=== PATIENT | male | born 1985 | race American Indian/Alaskan Native ===

== ENCOUNTER 2016-12-13 18:29 | Emergency (ER) | payer OTHER ==
[2016-12-13 18:29] VITALS: BMI 30.1
[2016-12-13 19:10] VITALS: BP 140/80; PULSE 106; RESP 18; TEMP 98; O2SAT 100
--- NOTE | 2016-12-13 19:54 | ED PDOC ---
Upper Extremity Pain/Injury Time Seen by Provider: 12/13/16 19:09 Chief Complaint (Nursing): Upper Extremity Problem/Injury Chief Complaint (Provider): Upper Extremity Problem/Injury History Per: Patient History/Exam Limitations: no limitations Onset/Duration Of Symptoms: Days (x1) Additional Complaint(s): Loco Marie, 30 year old male presents to the ED on 12/13/16 with pain localized to the right side of his neck. The patient initially felt the pain when he bent forward to pickle processor his son 1 day prior to arrival. The patient has a history of herniated discs in his neck. He takes Tramadol and Flexeril, but hasn't taken the medication in 2 months. The patient denies any fever, numbness , tingling, or blood trauma. Of note, the patient is under the care of a pain management doctor. The patient states that he hasn't visited his pain management doctor because the doctor is away on vacation. Past Medical History Reviewed: Historical Data, Nursing Documentation, Vital Signs Vital Signs: Last Vital Signs Temp 98 F 12/13/16 19:06 Pulse 106 H 12/13/16 19:06 Resp 18 12/13/16 19:06 BP 140/80 12/13/16 19:06 Pulse Ox 100 12/13/16 19:06 - Medical History Other PMH: history of herniated discs in neck - Surgical History Surgical History: Appendectomy - Family History Family History: States: Unknown Family Hx - Home Medications Home Medications: Ambulatory Orders Medication Instructions Recorded Oxycodone HCl/Acetaminophen 1 mg PO Q4 PRN 11/02/15 [Percocet 5-325 mg Tablet] Cyclobenzaprine [Cyclobenzaprine 10 mg PO Q8 PRN #30 tab 04/29/16 HCl] Tramadol HCl [Ultram] 50 mg PO BID PRN #30 tablet 04/29/16 oxyCODONE/Acetaminophen [Percocet 1 ea PO Q6H PRN #15 tab 06/01/16 5/325 mg Tab] Cyclobenzaprine [Cyclobenzaprine 10 mg PO Q8 PRN #30 tab 12/13/16 HCl] Tramadol HCl [Ultram] 50 mg PO BID PRN #15 tablet 12/13/16 - Allergies Allergies/Adverse Reactions: Allergies Allergy/AdvReac Type Severity Reaction Status Date / Time acetaminophen [From Tylenol] Allergy Severe SHORTNESS Verified 06/01/16 17:50 OF BREATH ibuprofen Allergy Severe SHORTNESS Verified 06/01/16 17:50 OF BREATH Penicillins Allergy Severe SHORTNESS Verified 06/01/16 17:50 OF BREATH Review of Systems Constitutional: Negative for: Fever, Other (no blood trauma) Musculoskeletal: Positive for: Neck Pain (localized to right side of neck) Neurological: Negative for: Numbness (no tingling) Physical Exam - Reviewed Nursing Documentation Reviewed: Yes Vital Signs Reviewed: Yes - Physical Exam Appears: Positive for: Non-toxic, No Acute Distress Head Exam: Positive for: ATRAUMATIC, NORMOCEPHALIC Skin: Positive for: Normal Color, Warm, Dry Eye Exam: Positive for: Normal appearance ENT: Positive for: Normal ENT Inspection Neck: Positive for: Pain On Movement Of Neck (Moderate right sided paracervical muscle tenderness and spasms) Cardiovascular/Chest: Positive for: Regular Rate, Rhythm, Chest Non Tender Respiratory: Positive for: Normal Breath Sounds. Negative for: Respiratory Distress Gastrointestinal/Abdominal: Positive for: Normal Exam, Soft. Negative for: Tenderness Extremity: Positive for: Normal ROM, Other (Equal supervisor of instruction strength bilaterally ) Neurologic/Psych: Positive for: Alert, Oriented (x3) - ECG O2 Sat by Pulse Oximetry: 100 (RA) Pulse Ox Interpretation: Normal Medical Decision Making Medical Decision Makin:09 Initial Impression: Right sided neck pain Initial Plan: * Flexeril 10 mg PO Once * Ultram 50 mg PO STAT * Reevaluation Scribe Attestation: Documented by Tanya Tate, acting as a scribe for Marcelino Colon PA-C. Provider Scribe Attestation: All medical record entries made by the Scribe were at my direction and personally dictated by me. I have reviewed the chart and agree that the record accurately reflects my personal performance of the history, physical exam, medical decision making, and the department course for this patient. I have also personally directed, reviewed, and agree with the discharge instructions and disposition. Disposition - Clinical Impression Clinical Impression: Neck pain - Patient ED Disposition Is Patient to be Admitted: No - Disposition Disposition Time: 20:00 Condition: STABLE Additional Instructions: Follow up with your back specialist in 2 days for further evaluation. Prescriptions: Cyclobenzaprine [Cyclobenzaprine HCl] 10 mg PO Q8 PRN #30 tab PRN Reason: Muscle Spasm Tramadol HCl [Ultram] 50 mg PO BID PRN #15 tablet PRN Reason: Other Instructions: Cervical Sprain (ED) Print Language: [id number]
== END 2016-12-13 20:00 | disposition home or self-care (01) ==
LOC: H.ER 18:29
DX: M54.2 Cervicalgia (principal); Z88.0 Allergy status to penicillin

== ENCOUNTER 2017-02-04 12:53 | Observation (INO) | payer OTHER ==
[2017-02-04 12:53] VITALS: BMI 30.1
[2017-02-04] MEDS ORDERED: Sodium Chloride 0.9% 1,000 ML IV STA ×2 (13:56→14:13)
--- NOTE | 2017-02-04 14:12 | ED PDOC ---
HPI: General Adult Time Seen by Provider: 02/04/17 13:12 Chief Complaint (Nursing): Abdominal Pain History Per: Patient Additional Complaint(s): Pt. states since last night he's had b/l lower abdominal pain associated with 7 episodes of non-bloody watery diarrhea and nausea without vomiting. Also reports having a temperature of 103 just prior to arrival but did not take any antipyretics. Denies recent travel, sick contacts, melena, hematochezia, BRBPR, hematemesis. Past Medical History Reviewed: Historical Data, Nursing Documentation, Vital Signs Vital Signs: Last Vital Signs Temp 98.9 F 02/04/17 13:06 Pulse 86 02/04/17 13:06 Resp 18 02/04/17 13:06 BP 140/82 02/04/17 13:06 Pulse Ox 100 02/04/17 16:53 - Surgical History Surgical History: Appendectomy - Family History Family History: States: No Known Family Hx - Home Medications Home Medications: Ambulatory Orders Medication Instructions Recorded Oxycodone HCl/Acetaminophen 1 mg PO Q4 PRN 11/02/15 [Percocet 5-325 mg Tablet] Cyclobenzaprine [Cyclobenzaprine 10 mg PO Q8 PRN #30 tab 04/29/16 HCl] Tramadol HCl [Ultram] 50 mg PO BID PRN #30 tablet 04/29/16 oxyCODONE/Acetaminophen [Percocet 1 ea PO Q6H PRN #15 tab 06/01/16 5/325 mg Tab] Cyclobenzaprine [Cyclobenzaprine 10 mg PO Q8 PRN #30 tab 12/13/16 HCl] Tramadol HCl [Ultram] 50 mg PO BID PRN #15 tablet 12/13/16 - Allergies Allergies/Adverse Reactions: Allergies Allergy/AdvReac Type Severity Reaction Status Date / Time acetaminophen [From Tylenol] Allergy Severe SHORTNESS Verified 06/01/16 17:50 OF BREATH ibuprofen Allergy Severe SHORTNESS Verified 06/01/16 17:50 OF BREATH Penicillins Allergy Severe SHORTNESS Verified 06/01/16 17:50 OF BREATH Review of Systems ROS Statement: Except As Marked, All Systems Reviewed And Found Negative Gastrointestinal: Positive for: Nausea, Abdominal Pain, Diarrhea Physical Exam - Reviewed Nursing Documentation Reviewed: Yes Vital Signs Reviewed: Yes - Physical Exam Appears: Positive for: Well, Non-toxic, No Acute Distress Head Exam: Positive for: ATRAUMATIC, NORMAL INSPECTION, NORMOCEPHALIC Skin: Positive for: Normal Color, Warm. Negative for: Rash Eye Exam: Positive for: EOMI, Normal appearance, PERRL ENT: Positive for: Normal ENT Inspection Neck: Positive for: Normal, Painless ROM Cardiovascular/Chest: Positive for: Regular Rate, Rhythm Respiratory: Positive for: CNT, Normal Breath Sounds Gastrointestinal/Abdominal: Positive for: Normal Exam, Bowel Sounds, Soft. Negative for: Tenderness (to deep palpation) Back: Positive for: Normal Inspection Extremity: Positive for: Normal ROM Neurologic/Psych: Positive for: Alert, Oriented - Laboratory Results Result Diagrams: 02/04/17 14:00 02/04/17 14:00 - ECG O2 Sat by Pulse Oximetry: 100 - Progress ED Course And Treament: Labs ordered. IV NS bolus x1, zofran 4mg IV, bentyl 20mg PO, pepcid 20mg IV given. ED OBSERVATION Discharge: Yes Date of observation admission: 02/04/17 Time of observation admission: 15:12 - Observation admission statement Patient is being placed in observation because:: LLQ pain - Progress Note Progress Note: 02/04/17 15:12 WBC elevated. Pt. reports pain has improved. Abd with LLQ tenderness. 02/04/17 16:53 Resting comfortably and in no distress. Pending CT to be done. 02/04/17 19:55 CT abd/pelvis w/ IV contrast: diffuse enterocolitis Cipro/Flagyl IV given. On re-evaluation, pt. reports good relief of pain. Tolerating PO fluids in ED. Instructed to return to ED immediately for any concerns. Disposition - Clinical Impression Clinical Impression: Enterocolitis - Patient ED Disposition Is Patient to be Admitted: No - Disposition Disposition: Routine/Home Disposition Time: 19:56 Condition: STABLE
[2017-02-04 14:50] LABS: BASO # 0.1 K/uL (0.0-0.2); BASO % 0.4 % (0.0-2.0); EOS % 0.1 % (0.0-4.0); HEMATOCRIT 49.6 % (35.0-51.0); LYMPH # 1.5 K/uL (1.0-4.3); MEAN CELL VOLUME 93.1 fl (80.0-94.0); MEAN CORPUSCULAR HEMOGLOBIN 30.4 pg (27.0-31.0); MEAN CORPUSCULAR HGB CONC 32.6 g/dL (33.0-37.0); MEAN PLATELET VOLUME 7.8 fl (7.2-11.7); MONO # 0.7 K/uL (0.0-0.8); MONO % 5.2 % (0.0-10.0); NEUT # 11.5 K/uL (1.8-7.0); NEUT % 83.3 % (50.0-75.0); NRBC % 0.1 % (0.0-0.0); RED CELL DISTRIBUTION WIDTH 14.8 % (11.5-14.5); WHITE BLOOD COUNT 13.8 K/uL (4.8-10.8)
[2017-02-04 15:03] LABS: ALB/GLOB RATIO 1.2 (1.0-2.1); ALKALINE PHOSPHATASE 71 U/L (38-126); ALT/SGPT 48 U/L (21-72); AST/SGOT 31 U/L (17-59); BILIRUBIN,TOTAL 0.7 mg/dl (0.2-1.3); BLOOD UREA NITROGEN 6 mg/dl (9-20); CALCIUM 9.5 mg/dL (8.4-10.2); CARBON DIOXIDE 23 mmol/L (22-30); CHLORIDE 102 mmol/L (98-107); GFR AFRICAN-AMERICAN > 60; GLUCOSE,RANDOM 95 mg/dL (75-110); LIPASE 73 U/L (23-300); POTASSIUM 3.9 MMOL/L (3.6-5.0); SODIUM 138 mmol/l (132-148); TOTAL PROTEIN 8.8 G/DL (6.3-8.2)
[2017-02-04 16:38] LABS: RBC URINE 8 /hpf (0-3); URINE BACTERIA FEW (<OCC); URINE BILIRUBIN NEGATIVE (NEGATIVE); URINE BLOOD NEGATIVE (NEGATIVE); URINE COLOR AMBER (YELLOW); URINE GLUCOSE (UA) NEG (Normal); URINE KETONE NEGATIVE (NEGATIVE); URINE LEUKOCYTE ESTERASE TRACE Leu/uL (Negative); URINE PROTEIN 100 mg/dL (NEGATIVE); URINE UROBILINOGEN 0.2-1.0 mg/dL (0.2-1.0); WBC URINE 11 /hpf (0-5)
--- NOTE | 2017-02-04 19:13 | CT ---
PROCEDURE: CT abdomen pelvis 02/04/2017 HISTORY: Left lower quadrant pain, diarrhea, leukocytosis, +appendectomy COMPARISON: No prior TECHNIQUE: Contiguous helical/ transaxial images of the abdomen and pelvis. Oral contrast was administered. No IV contrast given. Coronal and Sagittal reformats generated. Radiation dose: Total exam DLP = 952.35 mGy-cm. This CT exam was performed using one or more of the following dose reduction techniques: Automated exposure control, adjustment of the mA and/or kV according to patient size, and/or use of iterative reconstruction technique FINDINGS: LOWER THORAX: Mild atelectasis and or scarring changes both lung bases. No evidence of effusion or basilar pneumothorax. Small hiatal hernia. Heart size is borderline/mildly enlarged LIVER: The liver is borderline enlarged measuring nearly 18.5 cm in CC dimension. No obvious hepatic mass or collection. Mild fatty hepatic infiltration.The portal and splenic veins are opacified. GALLBLADDER AND BILE DUCTS: Gallbladder appears incompletely distended which may account for slight thick-walled appearance. Possibility of mild wall inflammation not excluded. No intraluminal gallbladder calculi PANCREAS: Visualized portions of the pancreas unremarkable. SPLEEN: Spleen exhibits normal size and attenuation pattern. ADRENALS: No adrenal lesions. KIDNEYS AND URETERS: Kidneys demonstrate relatively symmetric nephrograms. No evidence of nephrolithiasis or hydronephrosis. BLADDER: The urinary bladder is incompletely distended. REPRODUCTIVE: Unremarkable. APPENDIX: Appendix is not seen consistent with this patient's history of appendectomy. BOWEL: Evaluation of the bowel is somewhat limited due to the lack of oral contrast material the stomach is distended with liquid and air. Multiple loops of fluid-filled small bowel exhibiting wall thickening and enhancement consistent with a nonspecific enteritis. There is also mild wall thickening of the colon consistent with a colitis is well. PERITONEUM: Unremarkable. No fluid collection. No free air. LYMPH NODES: Unremarkable. No enlarged lymph nodes. VASCULATURE: Unremarkable. No aortic aneurysm. BONES: No fracture or destructive lesion. OTHER FINDINGS: None. IMPRESSION: Diffuse enterocolitis. Mild hepatomegaly with mild fatty hepatic infiltration. See above discussion for additional findings and details.
[2017-02-04] MEDS ORDERED: metroNIDAZOLE 500mg/100ml NS 100 ML IVPB STA (19:45)
[2017-02-04] MEDS ORDERED: Ciprofloxacin 400mg/200ml D5W 400 MG/200 ML BAG IVPB STA (19:45)
[2017-02-04 21:23] VITALS: BP 107/60; PULSE 92; RESP 16; TEMP 98.7; O2SAT 97
== END 2017-02-04 22:34 | disposition home or self-care (01) ==
LOC: H.ER 12:53 → H.EROBSV 15:11
PROVIDERS: ADMIT Emergency Medicine; ATTEND Emergency Medicine
DX: K52.9 Noninfective gastroenteritis and colitis, unspecified (principal)